=== PATIENT | female | born 1960 | race Caucasian/White ===

== ENCOUNTER 2023-10-04 09:44 | Outpatient (REF) | payer MEDICARE, OTHER, SELFPAY ==
--- NOTE | 2023-10-04 09:55 | EMG_ITS ---
Right median and ulnar motor and sensory studies were performed. Right median and lateral antecubital brachial sensory and radial sensory studies were performed and paraspinal muscles and some limb muscles were tested with a needle. IMPRESSION: Mild right ulnar sensory neuropathy with no evidence of entrapment neuropathy of the median or ulnar nerve or a proximal lesion. MD ALEXEI Rey/[facility] / [id number]
== END 2023-10-04 09:45 | disposition home or self-care (01) ==
LOC: HO.NEURO 09:44
PROVIDERS: PCP Internal Medicine; Visit Provider Internal Medicine
DX: G62.9 Polyneuropathy, unspecified (principal); R20.0 Anesthesia of skin
CPT/HCPCS: 95886; 95910